=== PATIENT | female | born 1950 | race Caucasian/White ===

== ENCOUNTER 2017-06-29 05:59 | Inpatient (IN) ==
[2017-06-29] MEDS ORDERED: Bacitracin 50,000 UNIT, Polymyxin B Sulfate 500,000 UNIT, Sodium Chloride IRRigation 1,... IR ONE (06:00)
[2017-06-29] MEDS ORDERED: Clindamycin 900 MG/50 ML 900 MG/50 ML IV.SOLN IVPB ONE (06:32)
[2017-06-29] MEDS ORDERED: Plasma-Lyte A (PH 7.4) 1,000 ML IVC SCH (06:45)
[2017-06-29 06:47] LABS: Bilirubin,Urine Negative (Negative); Blood,Urine Negative (Negative); Clarity,Urine Clear (Clear); Color,Urine Yellow (Yellow); Glucose,Urine (UA) Normal (Normal); Ketones,Urine Negative (Negative); Leukocyte Esterase,Urine Negative (Negative); Nitrite,Urine Negative (Negative); Protein,Urine Negative (Neg-Trace); Specific Gravity,Urine 1.016 (1.010-1.025); Urobilinogen,Urine Normal (Normal)
[2017-06-29] MEDS ORDERED: Albuterol 2.5 MG/3 ML NEBULIZER IH ONE ×2 (06:53→11:26)
[2017-06-29] MEDS ORDERED: Albuterol 2.5 MG/3 ML NEBULIZER ONE (06:56)
--- NOTE | 2017-06-29 06:56 | Anesthesia Evaluation PreOp ---
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: Other (cervical stenosis with myelopathy) Other Medical History: Renal (CKD), Diabetes Type II, Thyroid (hypo), GERD, Other (cervical cancer, obesity) Anesthesia History: No Prior Anesthetic Complications, Past Anesthesia (ACDF C5- 7, D&C, meniscus) Alcohol Use: none Drug use: none Medications and Allergies 3 Allergy/AdvReac Type Severity Reaction Status Date / Time cephalexin [From Keflex] Allergy Difficulty Verified 06/29/17 06:22 Breathing - Meds/Allergy Pre-op Review Medications Reviewed: Yes Allergies Reviewed: Yes Beta Blockers on Current Med List: Yes If Beta Blockers taken, Date/Time (Last Dose taken): today 399 Anesthesia Exam Selected Entries 06/29/17 07:01 Temperature 98.2 F Pulse Rate 82 Respiratory Rate 18 Blood Pressure 141/79 O2 Sat by Pulse Oximetry 95 Weight: 108kg BMI 42 - HEENT Pupil (Motor): EOMI Mallampati: III Teeth: Normal, Missing Oral Opening: Less than or equal to 3 (limited cervical extension) - SUPERVISOR SOUND TECHNICIAN LOC: Oriented SUPERVISOR SOUND TECHNICIAN Motor: Normal RUE, Normal LUE, Normal RLE, Normal LLE, Normal Face SUPERVISOR SOUND TECHNICIAN Sensory: Normal: RUE, LUE, RLE, LLE, Face - Cardiac Rhythm: Regular Murmur: None - Pulmonary Breath Sounds: bilateral Clear Respiratory Effort: Symmetrical Anesthesia Assess/Plan ASA Score: 3 Modified Heath Scale for Level of Consciousness: Cooperative, oriented, and tranquil Anesthetic Plan: General Monitoring Plan: Standard Monitors Recovery Plan: PACU (discussed risks of prone anesthesia, agrees to proceed)
[2017-06-29] MEDS ORDERED: Dexamethasone 4 MG/ML VIAL ONE ×2 (07:14→11:18)
[2017-06-29] MEDS ORDERED: *HR* Midazolam HCl 2 MG/2 ML VIAL ONE (07:14)
[2017-06-29] MEDS ORDERED: Ondansetron 4 MG/2 ML VIAL ONE ×2 (07:14→11:18)
[2017-06-29] MEDS ORDERED: *HR* Phenylephrine 10 MG/ML VIAL ONE (07:14)
[2017-06-29] MEDS ORDERED: *HR* FentaNYL (PF) 100 MCG/2 ML VIAL ONE (07:14)
[2017-06-29] MEDS ORDERED: *HR* Succinylcholine 200 MG/10 ML VIAL IVP ONE (07:14)
[2017-06-29] MEDS ORDERED: Lidocaine -MPF 2% 2 ML VIAL ONE (07:14)
[2017-06-29] MEDS ORDERED: Lidocaine -MPF 4% 5 ML AMPUL ONE (07:14)
[2017-06-29] MEDS ORDERED: *HR* Propofol 200 MG/20 ML VIAL IVP ONE ×4 (07:15→12:52)
[2017-06-29] MEDS ORDERED: Propofol 500 MG/50 ML INFUS..BTL ONE ×3 (07:35→11:56)
[2017-06-29] MEDS ORDERED: *HR* Remifentanil 2 MG VIAL IVP ONE ×2 (07:43→12:09)
--- NOTE | 2017-06-29 08:12 | History & Physical Report ---
Date of Encounter: 06/29/17 Time of Encounter: 08:11 24 Hour HP Update - Instructions Instructions: If the History and Physical is less than 30 days old and was completed prior to A.M. admission and or procedure and has NOT been updated on calendar day of procedure please complete this update prior to performing procedure. - Update Patient reports changes in Medical Condition: No Changes in examination, assessment, or condition: No Changes in Medication: No Preop tests/diagnostics Reviewed: Yes Pre-Op MRSA Screen: Negative Surgery Remains Indicated: Yes Consent for Planned Operative Procedure(s) Verified: Yes - Pre-Operative Checklist Preoperative Checklist Indicated: No Prophylactic Antibiotic Ordered: Yes Home Medications Include Beta Maegan: Yes Beta Maegan Taken Today (Day of Surgery): No Beta Maegan Taken Yesterday (Day Prior to Surgery): Yes Is VTE Prophylaxis Indicated?: Yes
[2017-06-29] MEDS ORDERED: *HR* Promethazine 25 MG/ML VIAL IVP PRN (11:26)
[2017-06-29] MEDS ORDERED: *HR* Labetalol 20 MG/4 ML SYRINGE IVP PRN (11:26)
--- NOTE | 2017-06-29 13:06 | Orthopedic Operative Note ---
Date of procedure: 06/29/17 Pre-op diagnosis: Cervical stenosis, cervical myelopathy Post-op diagnosis: same Operation/Findings: Posterior cervical fusion C4-C7: Patient was brought to the operative theater where he successfully underwent general endotracheal intubation. She was given antibiotics prior to the start of the procedure. Compression boots and stockings were used for deep vein thrombosis prophylaxis. A Bland catheter was placed. Leads were placed on the upper extremities and lower extremities as well as the cranium. The neurologic monitoring personnel confirmed satisfactory readings prior to the start of the procedure. The patient was turned prone on the operative table. After successful placement of Esquivel tongs and traction. The area from the mid occipital to the mid thoracic spine was prepped and draped in the usual sterile fashion posteriorly. An incision was made and centered over the C3-C7 cervical spinous processes in the midline. The scoring incision was deepened through the cervical fascia. We used Bovie cautery and Zambrano elevators to carefully dissect the lateral masses and expose them from C4-C7. Radiographic confirmation was confirmed by the radiologist via a discussion. We then placed lateral mass screws at C4, C5, C6, and C7 bilaterally using standard techniques. 7 separate 3.5 x 12 mm lateral mass screws were placed uneventfully and confirmed via fluorographic views as having satisfactory placement. After placement of the lateral mass screws, we turned our attention to the decompression. We removed the ligamentum flavum and interspinous and supraspinous ligaments at C6-7. We proceeded proximally with the decompression. This includes a laminectomy of C6, C5, and C4. All intervening ligamentum flavum and ligamentous material was removed. Bone obtained from the laminectomies was saved in a separate sterile container for later use. After the decompression, the spinal cord could be clearly visualized from C4-C7 and was fully decompressed. It was seen to expand nicely. We copiously irrigated the wound. We then decorticated the facet joints and lateral masses from ,C4-5, C5-6, and C6-7 bilaterally until bleeding bone was obtained. We then used the autograft bone obtained from the laminectomy/decompression from C4-C7 and placed it over the lateral masses and facet joints in these regions. We then placed rods within the screw heads from C4-C7 on the right and see 5 to C7 on the left. We subsequently placed screw caps over the Rods and locked and finally tightened the construct in standard fashion. We then closed the wound in layers with 1 Vicryl for the Fascia, 2-0 Vicryl for the more superficial fascia and 2-0 Vicryl was used for skin closure. Dermabond was paced over the wound. Sterile dressing was placed over the wound as well. Cervical collar was placed. Patient was turned supine and extubated on the Hospital Bed. The patient was in good condition at the end of the procedure. All sponge counts, needle counts, and Instruments were correct at the end of the procedure. Anesthesia: GETA Surgeon: Moody Mcmanus Jr Was there an blood donor unit assistant present: No Estimated blood loss (cc): 250 Specimen: None Condition: stable Disposition: PACU
[2017-06-29] MEDS: *HR* HYDROmorphone (PF) 1 MG/ML SYRINGE IVP PRN ×4 (13:27→13:53)
[2017-06-29] MEDS ORDERED: *HR* HYDROmorphone (PF) 1 MG/ML SYRINGE IVP PRN (14:13)
[2017-06-29] MEDS ORDERED: Acetaminophen IV 1,000 MG/100 ML INFUS..BTL IVPB ONE (14:15)
[2017-06-29] MEDS ORDERED: *HR* Meperidine 50 MG/ML SYRINGE ONE (14:23)
--- NOTE | 2017-06-29 15:28 | Anesthesia Evaluation Post Op ---
Date of Encounter: 06/29/17 Time of Encounter: 15:35 - Vital Signs Vital Signs: Vital Signs/O2 Sat/Glucose, Most Current Temp Pulse Resp BP Pulse Ox 06/29/17 15:15 97.1 F L 98 10 142/89 97 06/29/17 15:05 93 8 128/75 93 06/29/17 14:55 94 10 121/85 91 06/29/17 14:45 97.5 F L 89 12 144/90 94 06/29/17 14:35 88 14 136/87 94 06/29/17 14:25 100 18 164/88 96 06/29/17 14:15 97.6 F 95 16 168/80 94 06/29/17 14:05 92 16 167/85 96 06/29/17 13:55 93 16 163/88 98 06/29/17 13:45 93 18 159/84 96 06/29/17 13:35 98 18 168/148 98 06/29/17 13:25 96 16 142/113 96 06/29/17 13:15 97.0 F L 90 16 136/100 95 - Lungs Lungs: Clear Ascult./Percussion - Airway Airway: Non-obstructed - Cardiovascular Regular Rate - Mental Status Mental Status: Alert & Oriented, Answers Appropriately - Pain Pain Scale: 2 - Nausea Vomiting Nausea Vomiting: Not Present - Hydration Hydration: Ice chips - Discharge PostOp Status: Transfer Patient to floor
[2017-06-29] MEDS ORDERED: Acetaminophen 325 MG TABLET PO PRN (16:17)
[2017-06-29] MEDS ORDERED: Naloxone 0.4 MG/ML INJ IVP PRN (16:17)
[2017-06-29] MEDS ORDERED: Ondansetron 4 MG/2 ML VIAL IVP PRN (16:17)
[2017-06-29] MEDS: *HR* OxyCODONE Immed Rel 5 MG TABLET PO SCH ×2 (18:06→20:47)
[2017-06-29] MEDS: Ringers Solution, Lactated 1,000 ML IVC SCH (18:07)
[2017-06-29] MEDS: *HR* Morphine 2 MG/ML SYRINGE IVP PRN ×2 (18:49→23:04)
[2017-06-29] MEDS ORDERED: Dextrose Gel 15 GM/37.5 ML TUBE PO PRN ×2 (22:37)
[2017-06-29] MEDS ORDERED: D5% in Water 1,000 ML IVC PRN (22:37)
[2017-06-29] MEDS ORDERED: *HR* Dextrose 50 % in Water (Syg) 50 ML SYRINGE IVP PRN (22:37)
[2017-06-29] MEDS: Insulin LISPRO 300 UNITS/3 ML VIAL SQ SCH (23:15)
[2017-06-29] MEDS: Clindamycin 600 MG/50 ML 600 MG/50 ML IV.SOLN IVPB SCH (23:49)
[2017-06-30] MEDS: *HR* OxyCODONE Immed Rel 5 MG TABLET PO SCH ×2 (01:53→04:23)
[2017-06-30] MEDS: *HR* Morphine 2 MG/ML SYRINGE IVP PRN ×4 (03:10→23:18)
[2017-06-30] MEDS: Ringers Solution, Lactated 1,000 ML IVC SCH (04:42)
[2017-06-30 06:36] LABS: Basophils % 0.1 %; Hemoglobin 11.4 g/dL (11.5-15.4); Immature Granulocytes % 0.4 % (0-4); Lymphocytes % 9.6 %; Mean Corpuscular HGB Conc 34.5 g/dL (31.6-35.5); Mean Corpuscular Hemoglobin 30.5 pg (28.0-33.3); Mean Corpuscular Volume 88.2 fL (83.0-100.0); Monocytes # 0.7 K/mcL (0.0-1.3); Monocytes % 6.2 %; Platelet Count 210 K/mcL (140-400); Red Blood Count 3.74 M/mcL (3.82-4.97); Red Cell Distribution Width 12.7 % (11.5-14.5); Segmented Neutrophils % 83.7 %
[2017-06-30 07:16] LABS: BUN/Creatinine Ratio 13 (6-26); Blood Urea Nitrogen 12 mg/dL (8-23); Calcium 8.5 mg/dL (8.6-10.3); Carbon Dioxide 30 mEq/L (23-29); Chloride 94 mEq/L (98-107); Glucose 177 mg/dL (70-105); Osmolality,Calculated 278 (280-300); Potassium 3.5 mEq/L (3.5-5.1); Sodium 132 mEq/L (136-145); eGFR For African Americans > 60 (> 60); eGFR For Non-African Americans > 60 (> 60)
[2017-06-30] MEDS: Aspirin Enteric Coated 81 MG Tablet PO SCH (09:36)
[2017-06-30] MEDS: Insulin LISPRO 300 UNITS/3 ML VIAL SQ SCH ×4 (09:36→22:41)
[2017-06-30] MEDS: Cholecalciferol (D-3) 1,000 UNIT TABLET PO SCH (09:36)
[2017-06-30] MEDS: Venlafaxine XR (24 HR) 75 MG CAP.ER.24H PO SCH (09:36)
[2017-06-30] MEDS: diazePAM 5 MG TABLET PO PRN (09:36)
[2017-06-30] MEDS: (Alogliptin Benzoate [Alogliptin] 12.5 MG) PO SCH (09:37)
[2017-06-30] MEDS: Clindamycin 600 MG/50 ML 600 MG/50 ML IV.SOLN IVPB SCH (09:37)
[2017-06-30] MEDS: [UNRECOGNIZED DRUG - OTHER] PO SCH (09:38)
[2017-06-30] MEDS: (Bifidobacterium Infantis [Align] 4 MG) PO SCH (09:38)
[2017-06-30] MEDS: PYRIDOXINE PO SCH (09:38)
[2017-06-30] MEDS: CYANOCOBALAMIN PO SCH (09:38)
[2017-06-30] MEDS: *HR* OxyCODONE Immed Rel 5 MG TABLET PO PRN (09:40)
[2017-06-30] MEDS ORDERED: (Exenatide Microspheres [Bydureon Pen] 2 MG) SQ SCH (13:09)
--- NOTE | 2017-06-30 14:27 | Spine Progress Note ---
Date of Encounter: 06/30/17 Time of Encounter: 14:25 Subjective Principal diagnosis: Cervical stenosis, cervical myelopathy Interval history: The patient has complained of diffuse pain throughout the head and neck and upper shoulders. She states she has spasms into the neck which are quite debilitating. Afebrile vital signs are stable. Dressing is clean dry and intact. Neurovascularly intact with regard to bilateral upper and lower extremities. Assessment :stable. Plan mobilize ,continue analgesics, will start tizanidine and Valium, radiographs tomorrow, discharge planning. Will likely need skilled rehabilitation as she is mobilizing poorly. Objective Vital signs: Vital Signs Temp Pulse Resp BP Pulse Ox 06/30/17 11:00 97.9 F 94 16 156/73 99 06/30/17 07:00 98.3 F 87 18 148/76 98 06/30/17 03:59 98.0 F 95 19 157/93 96 06/29/17 23:48 97.6 F 107 18 180/82 98 06/29/17 18:10 98.4 F 98 14 121/82 100 06/29/17 17:10 98.4 F 97 14 117/79 99 06/29/17 16:40 98.0 F 100 14 123/89 97 06/29/17 16:15 99 06/29/17 16:10 98.2 F 98 14 130/73 96 06/29/17 15:55 97.4 F L 96 13 132/83 94 06/29/17 15:35 98 14 158/89 98 06/29/17 15:25 104 14 153/92 97 06/29/17 15:15 97.1 F L 98 10 142/89 97 06/29/17 15:05 93 8 128/75 93 06/29/17 14:55 94 10 121/85 91 06/29/17 14:45 97.5 F L 89 12 144/90 94 06/29/17 14:35 88 14 136/87 94 Intake and Output 06/29/17 06/30/17 06/30/17 23:59 07:59 15:59 Intake Total 1650 / 1650 Output Total 1100 / 1100 Balance 550 / 550 Intake: IV Fluids 1050 / 1050 Lactated Ringers 1,000 ML @ 100 1000 / 1000 mls/hr IVC .Q10H LEON[facility] Rx#: [id number] Cleocin Premix 600 MG/50 ML 600 50 / 50 mg In 50 ml @ 50 mls/hr IVPB Q8HR LEON[facility] Rx#:[id number] Oral 600 / 600 Output: Catheter 1100 / 1100 Other: Blood Glucose* 247 149 154 - Labs CBC & BMP: 06/30/17 06:05 06/30/17 06:05 Labs: Abnormal lab results RBC 3.74 M/mcL (3.82-4.97) L 06/30/17 06:05 Hgb 11.4 g/dL (11.5-15.4) L 06/30/17 06:05 Hct 33.0 % (35.3-44.9) L 06/30/17 06:05 Neutrophils # 9.0 K/mcL (1.6-8.9) H 06/30/17 06:05 Sodium 132 mEq/L (136-145) L 06/30/17 06:05 Chloride 94 mEq/L (98-107) L 06/30/17 06:05 Carbon Dioxide 30 mEq/L (23-29) H 06/30/17 06:05 Glucose 177 mg/dL (70-105) H 06/30/17 06:05 POC Glucose 154 (58-89) H 06/30/17 11:52 Calculated Osmolality 278 (280-300) L 06/30/17 06:05 Calcium 8.5 mg/dL (8.6-10.3) L 06/30/17 06:05 Consult Discharge Plan - Plan Referrals: Guy Wadsworth, PLANT PHYSIOLOGIST [Primary Care Provider] -
--- NOTE | 2017-06-30 14:35 | Discharge Summary ---
Date of Encounter: 06/30/17 Time of Encounter: 14:33 - Discharge Diagnosis (1) Cervical stenosis of spinal canal Priority: Primary Status: Chronic (2) Cervical myelopathy Priority: Secondary Status: Chronic - Discharge Medications Prescriptions: OxyCODONE Immed Rel [Roxicodone 5 MG] 5 mg PO Q4HR PRN #30 tablet PRN Reason: SEVERE PAIN (7-10) Home Medications: Alogliptin Benzoate [Alogliptin] 12.5 mg PO DAILY 06/29/17 [History] Aspirin [Lo-Dose Aspirin EC] 81 mg PO DAILY 06/29/17 [History] Bifidobacterium Infantis [Align] 4 mg PO DAILY 06/29/17 [History] Buspirone HCl [Buspar] 15 mg PO BID 06/29/17 [History] Cholecalciferol (Vitamin D3) [Vitamin D3] 50,000 unit PO TU 06/29/17 [History] Cyanocobalamin/FA/Pyridoxine [Folbic Tablet] 1 tab PO DAILY 06/29/17 [History] Desvenlafaxine Fumarate [Desvenlafaxine Fumarate ER] 50 mg PO DAILY 06/29/17 [ History] Exenatide Microspheres [Bydureon Pen] 2 mg SQ TH 06/29/17 [History] Ezetimibe [Zetia] 10 mg PO DAILY 06/29/17 [History] Levothyroxine [Synthroid] 75 mcg PO HS 06/29/17 [History] Metoprolol Succinate 50 mg PO DAILY 06/29/17 [History] Pantoprazole Sodium [Protonix] 40 mg PO BID 06/29/17 [History] Potassium Chloride [K-Tab ER] 20 meq PO DAILY 06/29/17 [History] Vits #90/Iron Fum/FA [ Formula Tablet] 1 tab PO DAILY 06/29/17 [History] Simvastatin [Zocor] 40 mg PO HS 06/29/17 [History] hydroCHLOROthiazide [Hydrochlorothiazide] 25 mg PO DAILY 06/29/17 [History] OxyCODONE Immed Rel [Roxicodone 5 MG] 5 mg PO Q4HR PRN #30 tablet 06/30/17 [Rx] Allergies/Adverse Reactions: 3 Allergy/AdvReac Type Severity Reaction Status Date / Time cephalexin [From Keflex] Allergy Difficulty Verified 06/29/17 06:22 Breathing bupropion [From Wellbutrin] AdvReac ELEVATED Verified 06/29/17 07:44 BLOOD PRESSURE gabapentin [From Neurontin] AdvReac ELEVATED Verified 06/29/17 07:44 BLOOD PRESSURE pregabalin [From Lyrica] AdvReac ELEVATED Verified 06/29/17 07:44 BLOOD PRESSURE Labs on day of discharge: Labs from last 24 hours 06/30/17 06/30/17 06/30/17 11:52 07:52 06:05 WBC RBC Hgb Hct MCV MCH MCHC RDW Plt Count MPV Immature Gran % Seg Neutrophils % Lymphocytes % Monocytes % Eosinophils % Basophils % Neutrophils # Lymphocytes # Monocytes # Eosinophils # Basophils # Sodium 132 L Potassium 3.5 Chloride 94 L Carbon Dioxide 30 H BUN 12 Creatinine 0.91 Est GFR ( Amer) > 60 Est GFR (Non-Af Amer) > 60 BUN/Creatinine Ratio 13 Glucose 177 H POC Glucose 154 H 149 H Calculated Osmolality 278 L Calcium 8.5 L 06/30/17 06/29/17 06:05 22:28 WBC 10.7 RBC 3.74 L Hgb 11.4 L Hct 33.0 L MCV 88.2 MCH 30.5 MCHC 34.5 RDW 12.7 Plt Count 210 MPV 11.0 Immature Gran % 0.4 Seg Neutrophils % 83.7 Lymphocytes % 9.6 Monocytes % 6.2 Eosinophils % 0.0 Basophils % 0.1 Neutrophils # 9.0 H Lymphocytes # 1.0 Monocytes # 0.7 Eosinophils # 0.0 Basophils # 0.0 Sodium Potassium Chloride Carbon Dioxide BUN Creatinine Est GFR ( Amer) Est GFR (Non-Af Amer) BUN/Creatinine Ratio Glucose POC Glucose 247 H Calculated Osmolality Calcium - Impressions ITS Impressions Cervical Spine X-Ray 06/29/17 00:00 IMPRESSION: 1. Interval posterior fusion hardware involving the C3 through C6. 2. Previous anterior fusion hardware involving C6 through T1. D/ / Denzel Smith MD / Denzel Smith MD Interpreting Provider: Denzel Smith MD Date of admission: 06/29/17 16:06 Primary care physician: Guy Wadwsorth CNP Consults: 06/29/17 16:17 Consult to Occupational Therapy [CONS] Routine Comment: Evaluate, develop and implement POC Reason for Consult: Postoperative rehabilitation Consult to Physical Therapy [CONS] Routine Comment: Evaluate, develop and implement POC Reason for Consult: Postoperative rehabilitation Consult to Spine Navigator [CONS] [CONS] Routine - Patient Status Disposition: Transfer SNF Condition: Fair Functional capacity at discharge: uses cane/walker Overall status at discharge: patient is progressing back to baseline - Discharge Instructions Follow Up With: Guy Wadsworth CNP [Primary Care Provider] - - Diet and Activity Activity: as per physical therapy Diet: advance to your usual diet - Hospital Course Hospital course: Ms. Cervantes is a 66 year old female The patient had an uneventful postoperative course. She had pain control issues as well as poor mobility during her hospital stay. Progressed from intravenous analgesic needs to oral analgesic needs only. Remained neurovascularly intact and brought mobilized only fairly.. All intraoperative and/or postoperative radiographic studies were satisfactory. Patient is discharged with plan for inpatient rehabilitation and follow-up in 2 weeks post discharge on analgesic medication and patient's home medications. - Time Spent with Patient Total time spent providing and/or coordinating discharge services: - VTE Documentation of Mechanical Device: Intermittent pneumatic compression device
[2017-06-30] MEDS: tiZANidine 4 MG TABLET PO PRN (22:40)
[2017-07-01] MEDS: *HR* OxyCODONE Immed Rel 5 MG TABLET PO PRN ×4 (02:32→17:31)
[2017-07-01] MEDS: *HR* Morphine 2 MG/ML SYRINGE IVP PRN ×2 (05:52→19:47)
--- NOTE | 2017-07-01 07:51 | Orthopedics Progress Note ---
Date of Encounter: 07/01/17 Time of Encounter: 07:50 Subjective Principal diagnosis: Cervical stenosis, cervical myelopathy Interval history: S: Diffuse pain throughout the head and neck and upper shoulders, with muscle spasm. O: AFVSS Dress c/d/i DNVI Bilateral UE/LE SILT C5-T1, L2-S1 A/P: s/p PCF C4-7 Continue PT Pain control, continue muscle relaxers D/c planning, likely to rehab Objective Vital signs: Vital Signs Temp Pulse Resp BP Pulse Ox 07/01/17 07:25 98.0 F 100 22 141/76 93 06/30/17 23:38 98.1 F 100 22 128/73 90 06/30/17 19:20 97.7 F 98 17 169/101 98 06/30/17 16:14 97.9 F 98 18 122/60 97 06/30/17 11:00 97.9 F 94 16 156/73 99 Intake and Output 06/30/17 06/30/17 07/01/17 15:59 23:59 07:59 Output Total 1000 / 1000 Balance -1000 / -1000 Output: Urine 1000 / 1000 Other: Blood Glucose* 154 184 128 - Labs CBC & BMP: 06/30/17 06:05 06/30/17 06:05 Labs: Abnormal lab results RBC 3.74 M/mcL (3.82-4.97) L 06/30/17 06:05 Hgb 11.4 g/dL (11.5-15.4) L 06/30/17 06:05 Hct 33.0 % (35.3-44.9) L 06/30/17 06:05 Neutrophils # 9.0 K/mcL (1.6-8.9) H 06/30/17 06:05 Sodium 132 mEq/L (136-145) L 06/30/17 06:05 Chloride 94 mEq/L (98-107) L 06/30/17 06:05 Carbon Dioxide 30 mEq/L (23-29) H 06/30/17 06:05 Glucose 177 mg/dL (70-105) H 06/30/17 06:05 POC Glucose 184 (58-89) H 06/30/17 19:47 Calculated Osmolality 278 (280-300) L 06/30/17 06:05 Calcium 8.5 mg/dL (8.6-10.3) L 06/30/17 06:05 - VTE Documentation of Mechanical Device: Intermittent pneumatic compression device Consult Discharge Plan - Plan Referrals: Guy Wadsworth CNP [Primary Care Provider] - Prescriptions: OxyCODONE Immed Rel [Roxicodone 5 MG] 5 mg PO Q4HR PRN #30 tablet PRN Reason: SEVERE PAIN (7-10)
[2017-07-01] MEDS: Cholecalciferol (D-3) 1,000 UNIT TABLET PO SCH (08:29)
[2017-07-01] MEDS: (Bifidobacterium Infantis [Align] 4 MG) PO SCH (08:30)
[2017-07-01] MEDS: Aspirin Enteric Coated 81 MG Tablet PO SCH (08:30)
[2017-07-01] MEDS: CYANOCOBALAMIN PO SCH (08:30)
[2017-07-01] MEDS: Insulin LISPRO 300 UNITS/3 ML VIAL SQ SCH ×4 (08:30→20:34)
[2017-07-01] MEDS: PYRIDOXINE PO SCH (08:30)
[2017-07-01] MEDS: [UNRECOGNIZED DRUG - OTHER] PO SCH (08:30)
[2017-07-01] MEDS: (Alogliptin Benzoate [Alogliptin] 12.5 MG) PO SCH (08:30)
[2017-07-01] MEDS: Venlafaxine XR (24 HR) 75 MG CAP.ER.24H PO SCH (08:30)
[2017-07-01] MEDS: tiZANidine 4 MG TABLET PO PRN ×2 (08:49→21:15)
[2017-07-01] MEDS: diazePAM 5 MG TABLET PO PRN (12:41)
[2017-07-01 17:58] LABS: Basophils % 0.3 %; Eosinophils # 0.1 K/mcL (0.0-0.6); Eosinophils % 1.3 %; Hematocrit 30.8 % (35.3-44.9); Hemoglobin 10.6 g/dL (11.5-15.4); Immature Granulocytes % 0.8 % (0-4); Lymphocytes # 1.4 K/mcL (0.6-4.6); Lymphocytes % 15.9 %; Mean Corpuscular HGB Conc 34.4 g/dL (31.6-35.5); Mean Corpuscular Hemoglobin 30.6 pg (28.0-33.3); Mean Platelet Volume 10.2 fL (9.4-12.4); Monocytes # 0.7 K/mcL (0.0-1.3); Neutrophils # 6.7 K/mcL (1.6-8.9); Platelet Count 197 K/mcL (140-400); Red Blood Count 3.46 M/mcL (3.82-4.97); Red Cell Distribution Width 12.8 % (11.5-14.5); Segmented Neutrophils % 73.7 %
[2017-07-01 18:18] LABS: BUN/Creatinine Ratio 15 (6-26); Blood Urea Nitrogen 12 mg/dL (8-23); Calcium 8.7 mg/dL (8.6-10.3); Carbon Dioxide 32 mEq/L (23-29); Chloride 90 mEq/L (98-107); Glucose 138 mg/dL (70-105); Osmolality,Calculated 270 (280-300); Potassium 3.4 mEq/L (3.5-5.1); Sodium 129 mEq/L (136-145); eGFR For African Americans > 60 (> 60); eGFR For Non-African Americans > 60 (> 60)
[2017-07-01] MEDS ORDERED: 0.9 % Sodium Chloride 1,000 ML IVC ONE (18:53)
[2017-07-02] MEDS: *HR* OxyCODONE Immed Rel 5 MG TABLET PO PRN ×4 (00:59→22:02)
[2017-07-02] MEDS: diazePAM 5 MG TABLET PO PRN ×2 (05:44→13:51)
[2017-07-02] MEDS: (Alogliptin Benzoate [Alogliptin] 12.5 MG) PO SCH (07:50)
[2017-07-02] MEDS: (Bifidobacterium Infantis [Align] 4 MG) PO SCH (07:50)
[2017-07-02] MEDS: PYRIDOXINE PO SCH (07:50)
[2017-07-02] MEDS: CYANOCOBALAMIN PO SCH (07:50)
[2017-07-02] MEDS: [UNRECOGNIZED DRUG - OTHER] PO SCH (07:50)
[2017-07-02] MEDS: tiZANidine 4 MG TABLET PO PRN ×2 (07:56→22:02)
[2017-07-02] MEDS: Venlafaxine XR (24 HR) 75 MG CAP.ER.24H PO SCH (07:56)
[2017-07-02] MEDS: Aspirin Enteric Coated 81 MG Tablet PO SCH (07:56)
[2017-07-02] MEDS: Cholecalciferol (D-3) 1,000 UNIT TABLET PO SCH (07:56)
[2017-07-02] MEDS: Insulin LISPRO 300 UNITS/3 ML VIAL SQ SCH ×4 (07:59→20:35)
[2017-07-02] MEDS: *HR* Morphine 2 MG/ML SYRINGE IVP PRN ×2 (10:01→18:44)
--- NOTE | 2017-07-02 16:05 | Orthopedics Progress Note ---
Date of Encounter: 07/02/17 Time of Encounter: 16:04 Subjective Principal diagnosis: Cervical stenosis, cervical myelopathy Interval history: S: Patient complaining of Diffuse pain throughout the head and neck and upper shoulders, with muscle spasm. Patient does not want an blade due to pain, has been uncooperative with nursing staff O: AFVSS Dress c/d/i DNVI Bilateral UE/LE SILT C5-T1, L2-S1 A/P: Postoperative day #3 s/p PCF C4-7 Continue PT Discussed with patient the need for ambulation Pain control, continue muscle relaxers D/c planning, to rehab on Tuesday Objective Vital signs: Vital Signs Temp Pulse Resp BP Pulse Ox 07/02/17 12:39 98.3 F 100 20 178/83 98 07/02/17 07:43 98.2 F 85 16 162/88 96 07/02/17 00:00 98.4 F 90 18 136/79 99 07/01/17 19:35 97.9 F 90 22 143/79 99 07/01/17 17:07 98.0 F 82 22 131/83 94 Intake and Output 07/02/17 07/02/17 07/02/17 07:59 15:59 23:59 Output Total 1200 / 1200 800 / 800 Balance -1200 / -1200 -800 / -800 Output: Urine 100 / 100 800 / 800 Straight Cath 1100 / 1100 Other: # Voids 1 Blood Glucose* 135 168 - Labs CBC & BMP: 07/01/17 17:46 07/01/17 17:46 Labs: Abnormal lab results RBC 3.46 M/mcL (3.82-4.97) L 07/01/17 17:46 Hgb 10.6 g/dL (11.5-15.4) L 07/01/17 17:46 Hct 30.8 % (35.3-44.9) L 07/01/17 17:46 Sodium 129 mEq/L (136-145) L 07/01/17 17:46 Potassium 3.4 mEq/L (3.5-5.1) L 07/01/17 17:46 Chloride 90 mEq/L (98-107) L 07/01/17 17:46 Carbon Dioxide 32 mEq/L (23-29) H 07/01/17 17:46 Glucose 138 mg/dL (70-105) H 07/01/17 17:46 POC Glucose 168 (58-89) H 07/02/17 12:43 Calculated Osmolality 270 (280-300) L 07/01/17 17:46 - VTE Documentation of Mechanical Device: Intermittent pneumatic compression device Consult Discharge Plan - Plan Referrals: Guy Wadsworth CNP [Primary Care Provider] - Prescriptions: OxyCODONE Immed Rel [Roxicodone 5 MG] 5 mg PO Q4HR PRN #30 tablet PRN Reason: SEVERE PAIN (7-10)
[2017-07-03] MEDS: *HR* OxyCODONE Immed Rel 5 MG TABLET PO PRN ×4 (03:49→21:36)
[2017-07-03] MEDS: *HR* Morphine 2 MG/ML SYRINGE IVP PRN ×3 (06:10→17:36)
[2017-07-03] MEDS: Cholecalciferol (D-3) 1,000 UNIT TABLET PO SCH (09:14)
[2017-07-03] MEDS: Venlafaxine XR (24 HR) 75 MG CAP.ER.24H PO SCH (09:14)
[2017-07-03] MEDS: (Alogliptin Benzoate [Alogliptin] 12.5 MG) PO SCH (09:15)
[2017-07-03] MEDS: (Bifidobacterium Infantis [Align] 4 MG) PO SCH (09:15)
[2017-07-03] MEDS: Insulin LISPRO 300 UNITS/3 ML VIAL SQ SCH ×4 (09:15→20:50)
[2017-07-03] MEDS: diazePAM 5 MG TABLET PO PRN (09:15)
[2017-07-03] MEDS: Aspirin Enteric Coated 81 MG Tablet PO SCH (09:15)
[2017-07-03] MEDS: PYRIDOXINE PO SCH (09:15)
[2017-07-03] MEDS: [UNRECOGNIZED DRUG - OTHER] PO SCH (09:15)
[2017-07-03] MEDS: CYANOCOBALAMIN PO SCH (09:15)
--- NOTE | 2017-07-03 11:04 | Orthopedics Progress Note ---
Date of Encounter: 07/03/17 Time of Encounter: 11:03 Subjective Principal diagnosis: Cervical stenosis, cervical myelopathy Interval history: S: Patient complaining of Diffuse pain throughout the head and neck and upper shoulders, with muscle spasm. Patient did ambulate with therapy this morning O: AFVSS Dress c/d/i DNVI Bilateral UE/LE SILT C5-T1, L2-S1 A/P: Postoperative day #4 s/p PCF C4-7 Continue PT Discussed with patient the need for ambulation Pain control, continue muscle relaxers D/c planning: to rehab on Tuesday Objective Vital signs: Vital Signs Temp Pulse Resp BP Pulse Ox 07/03/17 08:20 97.7 F 93 16 170/92 96 07/02/17 23:51 98.1 F 100 17 130/80 95 07/02/17 19:38 98.3 F 104 18 137/82 95 07/02/17 17:09 98.6 F 91 17 147/78 95 07/02/17 12:39 98.3 F 100 20 178/83 98 Intake and Output 07/02/17 07/03/17 07/03/17 23:59 07:59 15:59 Intake Total 150 / 150 50 / 50 Output Total 800 / 800 400 / 400 Balance 150 / 150 -750 / -750 -400 / -400 Intake: Oral 150 / 150 50 / 50 Output: Urine 800 / 800 400 / 400 Other: Weight 109 kg Blood Glucose* 160 113 Patient Weight 07/03/17 23:59 Weight 109 kg - Labs CBC & BMP: 07/01/17 17:46 07/01/17 17:46 Labs: Abnormal lab results RBC 3.46 M/mcL (3.82-4.97) L 07/01/17 17:46 Hgb 10.6 g/dL (11.5-15.4) L 07/01/17 17:46 Hct 30.8 % (35.3-44.9) L 07/01/17 17:46 Sodium 129 mEq/L (136-145) L 07/01/17 17:46 Potassium 3.4 mEq/L (3.5-5.1) L 07/01/17 17:46 Chloride 90 mEq/L (98-107) L 07/01/17 17:46 Carbon Dioxide 32 mEq/L (23-29) H 07/01/17 17:46 Glucose 138 mg/dL (70-105) H 07/01/17 17:46 POC Glucose 113 (58-89) H 07/03/17 08:18 Calculated Osmolality 270 (280-300) L 07/01/17 17:46 - VTE Documentation of Mechanical Device: Intermittent pneumatic compression device Consult Discharge Plan - Plan Referrals: Guy Wadsworth, SAMARIA [Primary Care Provider] - Prescriptions: OxyCODONE Immed Rel [Roxicodone 5 MG] 5 mg PO Q4HR PRN #30 tablet PRN Reason: SEVERE PAIN (7-10)
[2017-07-03] MEDS: tiZANidine 4 MG TABLET PO PRN (20:29)
[2017-07-04] MEDS: *HR* Morphine 2 MG/ML SYRINGE IVP PRN (00:31)
[2017-07-04] MEDS: *HR* OxyCODONE Immed Rel 5 MG TABLET PO PRN ×3 (06:11→21:04)
[2017-07-04] MEDS: Insulin LISPRO 300 UNITS/3 ML VIAL SQ SCH ×4 (07:51→21:06)
[2017-07-04] MEDS: Venlafaxine XR (24 HR) 75 MG CAP.ER.24H PO SCH (09:26)
[2017-07-04] MEDS: CYANOCOBALAMIN PO SCH (09:27)
[2017-07-04] MEDS: [UNRECOGNIZED DRUG - OTHER] PO SCH (09:27)
[2017-07-04] MEDS: Cholecalciferol (D-3) 1,000 UNIT TABLET PO SCH (09:27)
[2017-07-04] MEDS: tiZANidine 4 MG TABLET PO PRN ×2 (09:27→21:04)
[2017-07-04] MEDS: PYRIDOXINE PO SCH (09:27)
[2017-07-04] MEDS: (Bifidobacterium Infantis [Align] 4 MG) PO SCH (09:27)
[2017-07-04] MEDS: Aspirin Enteric Coated 81 MG Tablet PO SCH (09:27)
[2017-07-04] MEDS: (Alogliptin Benzoate [Alogliptin] 12.5 MG) PO SCH (09:27)
--- NOTE | 2017-07-04 15:45 | Spine Progress Note ---
Date of Encounter: 07/04/17 Time of Encounter: 15:44 - Assessment and Plan (1) Cervical stenosis of spinal canal Current Visit: Yes Status: Chronic (2) Cervical myelopathy Current Visit: Yes Status: Chronic Subjective Principal diagnosis: Cervical stenosis, cervical myelopathy Interval history: The patient has complained of diffuse pain throughout the head and neck and upper shoulders. She states she has spasms into the neck and upper extremities which are quite debilitating. Afebrile vital signs are stable. Dressing is clean dry and intact. Neurovascularly intact with regard to bilateral upper and lower extremities. Assessment :stable. Plan mobilize ,continue analgesics , antispasmodics, discharge planning. Awaiting approval on skilled rehabilitation. Objective Vital signs: Vital Signs Temp Pulse Resp BP Pulse Ox 07/04/17 11:36 98.9 F 91 17 166/76 94 07/04/17 07:45 98.8 F 79 16 160/92 95 07/03/17 23:41 98.1 F 95 20 118/70 94 07/03/17 20:18 98.3 F 92 19 116/70 95 07/03/17 16:48 98.9 F 92 17 158/82 94 Intake and Output 07/03/17 07/04/17 07/04/17 23:59 07:59 15:59 Intake Total 440 / 440 Output Total 800 / 800 950 / 950 Balance -360 / -360 -950 / -950 Intake: Oral 440 / 440 Output: Urine 800 / 800 950 / 950 Other: Meal Dinner Percent of Meal Consumed 10% # Voids 1 Weight 110.1 kg Blood Glucose* 160 140 164 - Labs CBC & BMP: 07/01/17 17:46 07/01/17 17:46 Labs: Abnormal lab results RBC 3.46 M/mcL (3.82-4.97) L 07/01/17 17:46 Hgb 10.6 g/dL (11.5-15.4) L 07/01/17 17:46 Hct 30.8 % (35.3-44.9) L 07/01/17 17:46 Sodium 129 mEq/L (136-145) L 07/01/17 17:46 Potassium 3.4 mEq/L (3.5-5.1) L 07/01/17 17:46 Chloride 90 mEq/L (98-107) L 07/01/17 17:46 Carbon Dioxide 32 mEq/L (23-29) H 07/01/17 17:46 Glucose 138 mg/dL (70-105) H 07/01/17 17:46 POC Glucose 160 (58-89) H 07/03/17 20:16 Calculated Osmolality 270 (280-300) L 07/01/17 17:46 Consult Discharge Plan - Plan Referrals: Guy Wadsworth CNP [Primary Care Provider] - Prescriptions: OxyCODONE Immed Rel [Roxicodone 5 MG] 5 mg PO Q4HR PRN #30 tablet PRN Reason: SEVERE PAIN (7-10)
[2017-07-04] MEDS: diazePAM 5 MG TABLET PO PRN (18:38)
[2017-07-05] MEDS: *HR* OxyCODONE Immed Rel 5 MG TABLET PO PRN ×3 (02:53→11:32)
[2017-07-05] MEDS: tiZANidine 4 MG TABLET PO PRN (05:10)
[2017-07-05] MEDS: Aspirin Enteric Coated 81 MG Tablet PO SCH (07:31)
[2017-07-05] MEDS: Venlafaxine XR (24 HR) 75 MG CAP.ER.24H PO SCH (07:31)
[2017-07-05] MEDS: Cholecalciferol (D-3) 1,000 UNIT TABLET PO SCH (07:31)
[2017-07-05] MEDS: (Bifidobacterium Infantis [Align] 4 MG) PO SCH (07:32)
[2017-07-05] MEDS: (Alogliptin Benzoate [Alogliptin] 12.5 MG) PO SCH (07:32)
[2017-07-05] MEDS: PYRIDOXINE PO SCH (07:32)
[2017-07-05] MEDS: CYANOCOBALAMIN PO SCH (07:32)
[2017-07-05] MEDS: Insulin LISPRO 300 UNITS/3 ML VIAL SQ SCH (07:32)
[2017-07-05] MEDS: [UNRECOGNIZED DRUG - OTHER] PO SCH (07:32)
[2017-07-05] MEDS: diazePAM 5 MG TABLET PO PRN (10:49)
[2017-07-05 11:15] VITALS: BP 164/91
== END 2017-07-05 11:48 | DRG 321 ==
LOC: SAMDAY 05:59 → INTOOBSV 16:06 → 3NENU 16:06
PROVIDERS: ADMIT Orthopaedic Surgery Orthopaedic Surgery of the Spine; ATTEND Orthopaedic Surgery Orthopaedic Surgery of the Spine